=== PATIENT | male | born 1975 | race Caucasian/White ===

== ENCOUNTER 2020-08-30 06:25 | Observation (INO) ==
[~2020-08-30 06:25] MED LIST: Ringers Solution, Lactated 1,000 ML IVC SCH
[2020-08-30] MEDS ORDERED: Lidocaine -MPF 2% 2 ML VIAL ONE (06:46)
[2020-08-30] MEDS ORDERED: Lidocaine HCL 4 ML Topical Solution (Laryng-O-Jet Kit Sterile Pak) TP ONE (06:46)
[2020-08-30] MEDS ORDERED: *HR* Succinylcholine 200 MG/10 ML VIAL IVP ONE (06:46)
[2020-08-30] MEDS ORDERED: Ondansetron 4 MG/2 ML VIAL ONE (06:46)
[2020-08-30] MEDS ORDERED: *HR* Midazolam HCl 2 MG/2 ML VIAL ONE (06:48)
[2020-08-30] MEDS ORDERED: *HR* Propofol 200 MG/20 ML VIAL IVP ONE (06:48)
[2020-08-30] MEDS ORDERED: *HR* FentaNYL (PF) 100 MCG/2 ML VIAL ONE ×2 (06:48→11:35)
[2020-08-30] MEDS ORDERED: CeFAZolin Syr 3,000MG/30 ML 3,000 MG/30 ML SYRINGE IVPB ONE (06:57)
[2020-08-30] MEDS ORDERED: *HR* Rocuronium Bromide 50 MG/5 ML VIAL ONE (06:59)
[2020-08-30] MEDS ORDERED: *HR* Remifentanil 1 MG VIAL IVP ONE ×2 (07:08→11:48)
[2020-08-30] MEDS ORDERED: Lidocaine -MPF 4% 5 ML AMPUL ONE (07:09)
[2020-08-30] MEDS ORDERED: Bacitracin 50,000 UNIT, Polymyxin B Sulfate 500,000 UNIT, Sodium Chloride IRRigation 1,... IR ONE (07:45)
[2020-08-30] MEDS ORDERED: *HR* OxyCODONE Immed Rel 5 MG TABLET PO PRN ×3 (08:00→19:56)
[2020-08-30] MEDS ORDERED: Ondansetron 4 MG/2 ML VIAL IVP PRN ×3 (08:00→19:56)
[2020-08-30] MEDS ORDERED: Acetaminophen IV 1,000 MG/100 ML BAG IVPB PRN (08:00)
[2020-08-30] MEDS ORDERED: *HR* HYDROmorphone PF 0.5 MG/0.5 ML SYRINGE IVP PRN (08:00)
[2020-08-30] MEDS ORDERED: Lidocaine Jelly 6ml 1 APPL/6 ML JEL.PF.APP ONE (08:26)
[2020-08-30] MEDS ORDERED: EPHEDrine 50 MG/ML VIAL ONE (09:08)
[2020-08-30] MEDS ORDERED: *HR* Phenylephrine 10 MG/ML VIAL ONE (09:21)
[2020-08-30] MEDS ORDERED: *HR* HYDROMORPHONE 2 MG/ML VIAL ONE (09:52)
[2020-08-30] MEDS ORDERED: *HR* Labetalol 20 MG/4 ML SYRINGE IVP ONE ×2 (10:40→12:46)
[2020-08-30] MEDS ORDERED: NiCARdipine 2.5 MG/10 ML Syringe IVPB ONE (11:34)
[2020-08-30] MEDS ORDERED: Ringers Solution, Lactated 1,000 ML IVC SCH ×2 (14:32→20:00)
[2020-08-30] MEDS ORDERED: Acetaminophen 325 MG TABLET PO PRN ×2 (14:32→19:56)
[2020-08-30] MEDS ORDERED: *HR* HYDROcodone/Acet 5/325 mg TABLET PO PRN ×2 (14:32→19:56)
[2020-08-30] MEDS ORDERED: Naloxone 0.4 MG/ML INJ IVP PRN ×2 (14:32→19:56)
[2020-08-30] MEDS ORDERED: Gabapentin 300 MG CAPSULE PO SCH (15:00)
[2020-08-30] MEDS ORDERED: CeFAZolin 2 GM/120 ML BAG IVPB SCH ×2 (16:00→21:00)
[2020-08-31] MEDS ORDERED: Ringers Solution, Lactated 1,000 ML IVC SCH (01:11)
[2020-08-31] MEDS ORDERED: Ondansetron 4 MG/2 ML VIAL IVP PRN (01:11)
[2020-08-31] MEDS ORDERED: Acetaminophen 325 MG TABLET PO PRN (01:11)
[2020-08-31] MEDS ORDERED: Naloxone 0.4 MG/ML INJ IVP PRN (01:11)
[2020-08-31] MEDS ORDERED: CeFAZolin 2 GM/120 ML BAG IVPB SCH ×2 (05:00)
[2020-08-31] MEDS: *HR* HYDROcodone/Acet 5/325 mg TABLET PO PRN ×2 (05:27→20:20)
[2020-08-31] MEDS: *HR* OxyCODONE Immed Rel 5 MG TABLET PO PRN ×2 (08:47→17:51)
[2020-08-31] MEDS: Gabapentin 300 MG CAPSULE PO SCH ×3 (11:32→20:20)
[2020-08-31] MEDS: tiZANidine 4 MG TABLET PO PRN ×2 (11:32→17:51)
[2020-08-31 14:20] LABS: Bilirubin,Urine Negative (Negative); Blood,Urine Negative (Negative); Clarity,Urine Clear (Clear); Color,Urine Light-Yellow (Yellow); Glucose,Urine (UA) Normal (Normal); Ketones,Urine Negative (Negative); Leukocyte Esterase,Urine Negative (Negative); Nitrite,Urine Negative (Negative); Protein,Urine Trace mg/dL (Neg-Trace); Specific Gravity,Urine 1.023 (1.010-1.025); Urobilinogen,Urine Normal (Normal)
[2020-08-31] MEDS ORDERED: diazePAM 5 MG TABLET PO ONE (14:36)
[2020-08-31] MEDS: Magnesium Oxide 400 MG TABLET PO SCH (20:20)
[2020-09-01] MEDS: *HR* OxyCODONE Immed Rel 5 MG TABLET PO PRN (02:27)
[2020-09-01] MEDS: tiZANidine 4 MG TABLET PO PRN ×2 (02:49→16:36)
[2020-09-01] MEDS: Gabapentin 300 MG CAPSULE PO SCH ×3 (08:23→20:28)
[2020-09-01] MEDS: Magnesium Oxide 400 MG TABLET PO SCH (08:24)
[2020-09-01] MEDS: *HR* HYDROcodone/Acet 5/325 mg TABLET PO PRN ×3 (08:31→23:32)
[2020-09-01] MEDS: Saline Nasal Spray 44 ML BOTTLE NS PRN ×2 (16:36→20:28)
[2020-09-02] MEDS: *HR* OxyCODONE Immed Rel 5 MG TABLET PO PRN (05:18)
[2020-09-02] MEDS: Gabapentin 300 MG CAPSULE PO SCH ×3 (07:35→19:55)
[2020-09-02] MEDS: Magnesium Oxide 400 MG TABLET PO SCH (07:35)
[2020-09-02] MEDS: tiZANidine 4 MG TABLET PO PRN ×2 (07:40→19:59)
[2020-09-02] MEDS: Saline Nasal Spray 44 ML BOTTLE NS PRN (10:24)
[2020-09-02] MEDS: *HR* HYDROcodone/Acet 5/325 mg TABLET PO PRN ×2 (13:49→19:55)
[2020-09-03] MEDS: *HR* HYDROcodone/Acet 5/325 mg TABLET PO PRN ×2 (05:57→20:55)
[2020-09-03] MEDS: Magnesium Oxide 400 MG TABLET PO SCH (09:16)
[2020-09-03] MEDS: Gabapentin 300 MG CAPSULE PO SCH ×3 (09:16→20:55)
[2020-09-03] MEDS: tiZANidine 4 MG TABLET PO PRN (17:23)
[2020-09-03] MEDS: Saline Nasal Spray 44 ML BOTTLE NS PRN (20:54)
[2020-09-04] MEDS: *HR* HYDROcodone/Acet 5/325 mg TABLET PO PRN ×2 (04:11→21:50)
[2020-09-04] MEDS: tiZANidine 4 MG TABLET PO PRN ×2 (04:11→13:34)
[2020-09-04] MEDS: Magnesium Oxide 400 MG TABLET PO SCH (08:01)
[2020-09-04] MEDS: Gabapentin 300 MG CAPSULE PO SCH ×3 (08:01→21:50)
[2020-09-05] MEDS: tiZANidine 4 MG TABLET PO PRN ×2 (03:11→13:20)
[2020-09-05 07:51] VITALS: BP 153/87
[2020-09-05] MEDS: Gabapentin 300 MG CAPSULE PO SCH (09:17)
[2020-09-05] MEDS: Magnesium Oxide 400 MG TABLET PO SCH (09:17)
[2020-09-05] MEDS: *HR* HYDROcodone/Acet 5/325 mg TABLET PO PRN (09:25)
== END 2020-09-05 14:15 ==
LOC: 3NENU 06:25 → SAMDAY 06:25 → 3NENU 13:47
PROVIDERS: ADMIT Orthopaedic Surgery Orthopaedic Surgery of the Spine; ATTEND Orthopaedic Surgery Orthopaedic Surgery of the Spine